=== PATIENT | male | born 1990 | race Caucasian/White ===

== ENCOUNTER 2017-08-20 21:08 | Emergency (ER) | payer BC ==
[~2017-08-20] VITALS: Ht 180.3 cm; Wt 85.0 kg
[~2017-08-20 21:08] MED LIST: CIPR-255 PO; ONDA4TAB7 SL; OXYC1TAB3 PO; TAMS0.4C38 PO
[2017-08-20 21:17] VITALS: TEMP 36.4; Ht 180.3 cm; Wt 85.0 kg
[2017-08-20 21:40] LABS: BASO % 0.4 %; BASO ABS # 0.02 K/uL (0-0.2); EOS % 0.5 %; EOS ABS # 0.03 K/uL (0-0.5); HEMATOCRIT 41.4 % (42-52); HEMOGLOBIN 14.7 g/dL (14.0-18.0); IG# 0.01 K/uL (0.00-0.02); LYMPH % 29.3 %; LYMPH ABS # 1.66 K/uL (1.2-3.4); MEAN CELL VOLUME 87.2 fL (80-100); MEAN CORPUSCULAR HEMOGLOBIN 30.9 pg (25-34); MEAN CORPUSCULAR HGB CONC 35.5 g/dl (32-36); MEAN PLATELET VOLUME 8.9 fL (7.4-10.4); MONO % 16.4 %; MONO ABS # 0.93 K/uL (0.11-0.59); NEUT % 53.2 %; NEUT ABS # 3.01 K/uL (1.4-6.5); PLATELET COUNT 203 K/uL (130-400); RED CELL DISTRIBUTION WIDTH CV 12.2 % (11.5-14.5); RED CELL DISTRIBUTION WIDTH SD 39.1 fL (36.4-46.3); WHITE BLOOD COUNT 5.66 K/uL (4.8-10.8)
[2017-08-20] MEDS ORDERED: ONDANSETRON INJ 2 MG/ML 2 ML VIAL IV STA (21:40)
[2017-08-20] MEDS ORDERED: KETOROLAC TROMETHAMINE 30 MG/ML VIAL IV STA (21:40)
[2017-08-20] MEDS ORDERED: HYDROmorphone INJ 1 MG/ML SYR IV STA ×2 (21:40→22:53)
[2017-08-20 21:57] LABS: ALBUMIN 4.2 gm/dl (3.4-5.0); CALCIUM 8.7 mg/dl (8.5-10.1); CREATININE 1.25 mg/dl (0.60-1.40); POTASSIUM 3.7 mmol/L (3.5-5.1)
[2017-08-20 22:00] LABS: TOTAL PROTEIN 7.8 gm/dl (6.4-8.2)
--- NOTE | 2017-08-20 22:17 | DIAGNOSTIC IMAGING REPORT ---
KUB CLINICAL HISTORY: Abdominal pain COMPARISON STUDY: No previous studies for comparison. FINDINGS: There is no evidence of pathologic bowel dilatation. At least 3 right renal calcifications are visualized largest of which measures 3 mm. There are 2 left renal calcifications, the largest of which measures 4 mm. No definite ureteral calculi are visualized. A density located inferior to the right L4 transverse process, is not visualized on both images and is likely artifact. IMPRESSION: 1. Bilateral nephrolithiasis 2. No evidence of pathologic bowel dilatation Electronically signed by: Jak Aguila M.D. 08/20/2017 10:15 PM Dictated Date/Time: 08/20/2017 10:13 PM
--- NOTE | 2017-08-20 22:23 | EMERGENCY ROOM VISIT NOTE ---
History Report prepared by April: Xena Gonzalez Under the Supervision of: Dr. El Macedo M.D. First contact with patient: 21:18 Chief Complaint: KIDNEY STONE Stated Complaint: RADIATING PAIN FROM LOWER BACK TO GROIN History of Present Illness The patient is a 27 year old male who presents to the Emergency Room with complaints of an episode of a kidney stone starting a few hours ago. The patient states that she has a history of kidney stones and this feels similar to past ones. He states that the pain is on the left side of his lower back and radiates into his groin. He states that he took an Vicodin that offered no relief. The patient denies a fever. He notes that he does not follow urology regularly, but has seen them in the past. Source of History: patient Onset: episode Position: other (global) Quality: other (previous kidney stones) Timing: other (episode) Associated Symptoms: + back pain, No fevers Note: The patient states that the pain radiates into his groin. Review of Systems See HPI for pertinent positives & negatives. A total of 10 systems reviewed and were otherwise negative. Past Medical & Surgical Medical Problems: (1) Asthma (2) Elevated serum creatinine (3) Kidney stones Family History Diabetes mellitus Hypertension Kidney stones Social History Smoking Status: Never Smoker Drug Use: none Marital Status: single Housing Status: lives with family Occupation Status: employed Current/Historical Medications Scheduled Tamsulosin Hcl (Flomax), 0.4 MG PO HS Scheduled PRN Oxycodone/Acetaminophen 5MG/325MG (Percocet 5MG/325MG), 1-2 TAB PO Q4H PRN for Pain Allergies Coded Allergies: Codeine (Verified Adverse Reaction, Unknown, Nausea/vomiting, 08/20/17) Physical Exam Vital Signs Date Time Temp Pulse Resp B/P (MAP) Pulse Ox O2 Delivery O2 Flow Rate FiO2 08/20/17 22:54 73 16 144/90 98 Room Air 08/20/17 21:51 88 150/89 100 Room Air 08/20/17 21:17 36.4 88 20 152/92 97 Room Air Physical Exam GENERAL: Awake, alert, uncomfortable appearing, in no acute distress HENT: Normocephalic, atraumatic. Oropharynx unremarkable. EYES: Normal conjunctiva. Sclera non-icteric. NECK: Supple. No nuchal rigidity. FROM. No JVD. RESPIRATORY: Clear to auscultation. CARDIAC: Regular rate, normal rhythm. Extremities warm and well perfused. Pulses equal. ABDOMEN: Soft, non-distended. No tenderness to palpation. No rebound or guarding. No masses. RECTAL: Deferred. MUSCULOSKELETAL: Chest examination reveals no tenderness. The back is symmetrical on inspection without obvious abnormality. There is no CVA tenderness to palpation. No joint edema. LOWER EXTREMITIES: Calves are equal size bilaterally and non-tender. No edema. No discoloration. NEURO: Normal sensorium. No sensory or motor deficits noted. SKIN: No rash or jaundice noted. Medical Decision & Procedures ER Provider Diagnostic Interpretation: Radiology results as stated below per my review and radiologist interpretation: KUB CLINICAL HISTORY: Abdominal pain COMPARISON STUDY: No previous studies for comparison. FINDINGS: There is no evidence of pathologic bowel dilatation. At least 3 right renal calcifications are visualized largest of which measures 3 mm. There are 2 left renal calcifications, the largest of which measures 4 mm. No definite ureteral calculi are visualized. A density located inferior to the right L4 transverse process, is not visualized on both images and is likely artifact. IMPRESSION: 1. Bilateral nephrolithiasis 2. No evidence of pathologic bowel dilatation Electronically signed by: Jak Aguila M.D. 08/20/2017 10:15 PM Dictated Date/Time: 08/20/2017 10:13 PM EXAMINATION: RENAL ULTRASOUND CLINICAL HISTORY: Left flank pain COMPARISON STUDY: L radiographic study dated 08/16/2013 FINDINGS: The right kidney measures 10.4 cm. The left kidney measures 11.4 cm. There are bilateral echogenic renal foci, suspicious for calculi. There are no renal masses. There is mild left-sided hydronephrosis. The bladder was nearly empty at the time scanning. Ureteral jets were not visualized. IMPRESSION : 1. Bilateral nephrolithiasis 2. Mild left-sided hydronephrosis. This raises the possibility of an obstructing left ureteral calculus Electronically signed by: Jak Aguila M.D. 08/20/2017 10:31 PM Dictated Date/Time: 08/20/2017 10:29 PM Laboratory Results 08/20/17 21:31 Red Blood Count 4.75, Mean Corpuscular Volume 87.2, Mean Corpuscular Hemoglobin 30.9, Mean Corpuscular Hemoglobin Concent 35.5, Mean Platelet Volume 8.9, Neutrophils (%) (Auto) 53.2, Lymphocytes (%) (Auto) 29.3, Monocytes (%) (Auto) 16.4, Eosinophils (%) (Auto) 0.5, Basophils (%) (Auto) 0.4, Neutrophils # (Auto ) 3.01, Lymphocytes # (Auto) 1.66, Monocytes # (Auto) 0.93, Eosinophils # (Auto ) 0.03, Basophils # (Auto) 0.02 08/20/17 21:31 Test 08/20/17 21:31 White Blood Count 5.66 K/uL (4.8-10.8) Red Blood Count 4.75 M/uL (4.7-6.1) Hemoglobin 14.7 g/dL (14.0-18.0) Hematocrit 41.4 % (42-52) Mean Corpuscular Volume 87.2 fL (80-100) Mean Corpuscular Hemoglobin 30.9 pg (25-34) Mean Corpuscular Hemoglobin Concent 35.5 g/dl (32-36) Platelet Count 203 K/uL (130-400) Mean Platelet Volume 8.9 fL (7.4-10.4) Neutrophils (%) (Auto) 53.2 % Lymphocytes (%) (Auto) 29.3 % Monocytes (%) (Auto) 16.4 % Eosinophils (%) (Auto) 0.5 % Basophils (%) (Auto) 0.4 % Neutrophils # (Auto) 3.01 K/uL (1.4-6.5) Lymphocytes # (Auto) 1.66 K/uL (1.2-3.4) Monocytes # (Auto) 0.93 K/uL (0.11-0.59) Eosinophils # (Auto) 0.03 K/uL (0-0.5) Basophils # (Auto) 0.02 K/uL (0-0.2) RDW Standard Deviation 39.1 fL (36.4-46.3) RDW Coefficient of Variation 12.2 % (11.5-14.5) Immature Granulocyte % (Auto) 0.2 % Immature Granulocyte # (Auto) 0.01 K/uL (0.00-0.02) Urine Color DK YELLOW Urine Appearance CLOUDY (CLEAR) Urine pH 5.5 (4.5-7.5) Urine Specific [place] 1.028 (1.000-1.030) Urine Protein 1+ (NEG) Urine Glucose (UA) NEG (NEG) Urine Ketones TRACE (NEG) Urine Occult Blood 3+ (NEG) Urine Nitrite NEG (NEG) Urine Bilirubin NEG (NEG) Urine Urobilinogen NEG (NEG) Urine Leukocyte Esterase NEG (NEG) Urine WBC (Auto) 1-5 /hpf (0-5) Urine RBC (Auto) >30 /hpf (0-4) Urine Hyaline Casts (Auto) 1-5 /lpf (0-5) Urine Epithelial Cells (Auto) 5-10 /lpf (0-5) Urine Bacteria (Auto) NEG (NEG) Urine Yeast (Auto) (NONE PRSENT) Anion Gap 6.0 mmol/L (3-11) Est Creatinine Clear Calc Drug Dose 92.8 ml/min Estimated GFR () 89.6 Estimated GFR (Non- 77.3 BUN/Creatinine Ratio 10.7 (10-20) Calcium Level 8.7 mg/dl (8.5-10.1) Total Bilirubin 0.4 mg/dl (0.2-1) Direct Bilirubin 0.1 mg/dl (0-0.2) Aspartate Amino Transf (AST/SGOT) 15 U/L (15-37) Alanine Aminotransferase (ALT/SGPT) 20 U/L (12-78) Alkaline Phosphatase 67 U/L (45-117) Total Protein 7.8 gm/dl (6.4-8.2) Albumin 4.2 gm/dl (3.4-5.0) Lipase 116 U/L (73-393) Labs reviewed by ED physician. Medications Administered Medications (Trade) Dose Ordered Sig/Hema Route Start Time Stop Time Status Last Admin Dose Admin Ketorolac Tromethamine (Toradol Inj) 30 mg NOW STAT IV 08/20/17 21:40 08/20/17 21:41 DC 08/20/17 21:46 30 MG Hydromorphone HCl (Dilaudid Inj) 1 mg NOW STAT IV 08/20/17 21:40 08/20/17 21:41 DC 08/20/17 21:47 1 MG Ondansetron HCl (Zofran Inj) 4 mg NOW STAT IV 08/20/17 21:40 08/20/17 21:41 DC 08/20/17 21:46 4 MG Tamsulosin HCl (Flomax Cap) 0.4 mg NOW STAT PO 08/20/17 22:49 08/20/17 22:50 DC 08/20/17 22:53 0.4 MG Hydromorphone HCl (Dilaudid Inj) 1 mg NOW STAT IV 08/20/17 22:53 08/20/17 22:54 DC 08/20/17 23:02 1 MG Oxycodone/ Acetaminophen (Percocet 5/ 325MG Home Pack) 1 homepack UD ONCE PO 08/20/17 23:00 08/20/17 23:01 DC 08/20/17 23:02 1 HOMEPACK ED Course 2138: Past medical records reviewed. The patient was evaluated in room C3. A complete history and physical examination was performed. 2139: Ordered Zofran Inj 4 mg IV, Dilaudid Inj 1 mg IV, Toradol Inj 30 mg IV. 2248: Ordered Flomax Cap 0.4 mg PO. 2253: Ordered Dilaudid Inj 1 mg IV. 2300: Ordered Oxycodone/Acetaminophen 1 homepack PO. 2301: Upon reexamination the patient is resting comfortably. I discussed results and treatment plan with the patient. He verbalizes agreement and understanding. The patient is ready for discharge. Medical Decision Differential diagnosis: Etiologies such as renal colic, appendicitis, diverticulitis, mesenteric ischemia, aortic pathology, infections, inflammatory bowel disease, PUD, biliary pathology, UTI, as well as others were entertained. This is a 27-year-old male who presents emergency department complaining of flank pain. Patient has a history of kidney stones and has had a number of CAT scans. Based on that using shared medical decision making with both made the decision that the patient probably did not require another CAT scan. Therefore sent for KUB as well as an ultrasound. The ultrasound was concerning for hydronephrosis and I suspect he is passing very small stone if he has blood in his urine. He has no evidence of infection and is afebrile here. Based on these findings along with the fact that the patient's pain is under better control with Dilaudid and Toradol, I feel that the patient can be safely discharged home. Stressed the need to return if the patient develops any fever. I also recommended that the patient follow-up with urology I will place the patient on Flomax. Patient was in agreement with the treatment plan. Medication Reconcilliation Current Medication List: was personally reviewed by me Blood Pressure Screening Patient's blood pressure: Elevated blood pressure Blood pressure disposition: Elevated BP felt to be situational Impression Primary Impression: Left flank pain Scribe Attestation The scribe's documentation has been prepared under my direction and personally reviewed by me in its entirety. I confirm that the note above accurately reflects all work, treatment, procedures, and medical decision making performed by me. Departure Information Dispostion Home / Self-Care Prescriptions Tamsulosin Hcl (FLOMAX) 0.4 Mg Cap 0.4 MG PO HS for 10 Days, #10 CAP Prov: El Macedo MD 08/20/17 Oxycodone/Acetaminophen 5MG/325MG (PERCOCET 5MG/325MG) Tab 1-2 TAB PO Q4H Y for Pain, #14 TAB Prov: El Macedo MD 08/20/17 Referrals No Doctor, Assigned (PCP) Forms HOME CARE DOCUMENTATION FORM, IMPORTANT VISIT INFORMATION Patient Instructions My [facility] Additional Instructions Return for uncontrolled pain and or fevers You received narcotic or benzodiazepene medication while in the emergency room today. This is an addictive medication that may cause drowziness as well as constipation. Do not drive, operate heavy machinery, or drink alcohol under the influence of this medication. Take 600 mg Ibuprofen every 6 hours Take Percocet for breakthrough pain You have been examined and treated today on an emergency basis only. This is not a substitute for, or an effort to provide, complete comprehensive medical care. It is impossible to recognize and treat all injuries or illnesses in a single emergency department visit. It is therefore important that you follow up closely with Dr Nunez. Call as soon as possible for an appointment. Thank you for your time and consideration. I look forward to speaking with you again soon. Please don't hesitate to call us if you have any questions.
--- NOTE | 2017-08-20 22:32 | DIAGNOSTIC IMAGING REPORT ---
EXAMINATION: RENAL ULTRASOUND CLINICAL HISTORY: Left flank pain COMPARISON STUDY: L radiographic study dated 08/16/2013 FINDINGS: The right kidney measures 10.4 cm. The left kidney measures 11.4 cm. There are bilateral echogenic renal foci, suspicious for calculi. There are no renal masses. There is mild left-sided hydronephrosis. The bladder was nearly empty at the time scanning. Ureteral jets were not visualized. IMPRESSION : 1. Bilateral nephrolithiasis 2. Mild left-sided hydronephrosis. This raises the possibility of an obstructing left ureteral calculus Electronically signed by: Jak Aguila M.D. 08/20/2017 10:31 PM Dictated Date/Time: 08/20/2017 10:29 PM
[2017-08-20] MEDS ORDERED: TAMSULOSIN HCL 0.4 MG CAP PO STA (22:49)
[2017-08-20 22:54] VITALS: BP 144/90; PULSE 73; O2SAT 98
[2017-08-20] MEDS ORDERED: OXYC-57 PO (22:54)
[2017-08-20] MEDS ORDERED: TAMS0.4C38 PO (22:55)
[2017-08-20] MEDS ORDERED: PERCOCET HOME PACK PO ONE (23:00)
== END 2017-08-20 23:05 | disposition home or self-care (01) ==
LOC: C.EDB 21:11 → C.EDC 23:05
DX: N13.2 Hydronephrosis with renal and ureteral calculous obstruction (principal); Z87.442 Personal history of urinary calculi; J45.909 Unspecified asthma, uncomplicated; Z83.3 Family history of diabetes mellitus; Z82.49 Family history of ischemic heart disease and other diseases of the circulatory system; Z84.1 Family history of disorders of kidney and ureter; Z79.899 Other long term (current) drug therapy; Z88.5 Allergy status to narcotic agent

== ENCOUNTER → 2017-09-11 | Outpatient (CLI) | payer BC ==
[~2017-09-11] MED LIST changes: -CIPR-255 PO; -ONDA4TAB7 SL; +OXYC-57 PO; -OXYC1TAB3 PO; -TAMS0.4C38 PO
== END | disposition home or self-care (01) ==
LOC: C.LABSPEC 10:23
PROVIDERS: ATTEND Urology
DX: N20.0 Calculus of kidney (principal); N39.0 Urinary tract infection, site not specified